=== PATIENT | male | born 1955 | race Hispanic/Latino ===

== ENCOUNTER 2024-06-06 11:02 | Inpatient (IN) | payer MEDICARE ==
[2024-06-06] MEDS ORDERED: Ondansetron ODT 4 MG TAB PO PRN (21:07)
[2024-06-06] MEDS ORDERED: Acetaminophen 650 MG Suppository PR PRN (21:07)
[2024-06-06] MEDS ORDERED: Ondansetron PF 4 MG/2 ML Vial IVP PRN (21:07)
[2024-06-06 21:35] VITALS: BMI 28.5
[2024-06-06 22:32] LABS: #Basophils Less than 0.03 10x3/uL (0.0-0.2); %Basophils 0.2 % (0.0-1.0); %Eosinophils 2.6 % (0.0-10.0); %Lymphocytes 18.6 % (21.0-51.0); %Monocytes 4.9 % (0.0-10.0); %Neutrophils 73.2 % (42.0-75.0); Hemoglobin 12.6 g/dL (14.0-18.0); Mean Corpuscular HGB CONC 32.3 g/dL (32.0-36.0); Mean Corpuscular Hemoglobin 29.2 pg (27.0-31.0); Mean Corpuscular Volume 90.3 fL (78.0-98.0); Mean Platelet Volume 11.6 fL (7.4-10.4); Platelet Count 231 10x3/uL (130-400); RBC Distribution Width 13.8 % (11.5-14.5); Red Blood Cell (RBC) Count 4.32 mill/uL (4.70-6.10)
[2024-06-06 22:44] LABS: Hemoglobin A1c 9.8 % (4.0-6.0)
[2024-06-06 23:19] LABS: Troponin I 0.047 ng/mL (< 0.028)
[2024-06-06 23:27] LABS: Anion Gap 15 mmol/L (10-20); BUN (Urea Nitrogen) 23 mg/dL (8.4-25.7); Calc. Creatinine Clearance 71 mL/min (70-130); Carbon Dioxide 25 mmol/L (23-31); Chloride 100 mmol/L (98-107); Estimated GFR 63; Glucose 255 mg/dL (80-115); Magnesium 1.8 mg/dL (1.6-2.6); Sodium 136 mmol/L (136-145)
[2024-06-07] MEDS: Furosemide 40 MG (4 mL) VIAL SLOW IVP SCH ×2 (00:38→05:08)
[2024-06-07] MEDS: Ipratropium/Albuterol 3 ML NEB NEB PRN (01:35)
[2024-06-07] MEDS ORDERED: Dextrose 50% Abboject 50 ML SYRINGE SLOW IVP PRN (03:36)
[2024-06-07] MEDS ORDERED: Dextrose 5% in Water 1,000 ML IV PRN (03:36)
[2024-06-07] MEDS ORDERED: Glucagon 1 MG/ML KIT IM PRN (03:36)
[2024-06-07] MEDS: Magnesium 2 GM/50 ML(in water) 2 GM in Premix 1 BAG IVPB SCH (04:18)
[2024-06-07 06:12] LABS: ALT (SGPT) 24 U/L (8-55); AST (SGOT) 24 U/L (5-34); Albumin 3.5 g/dL (3.4-4.8); Alkaline Phosphatase 97 U/L (40-110); Anion Gap 15 mmol/L (10-20); BUN (Urea Nitrogen) 20 mg/dL (8.4-25.7); Calc. Creatinine Clearance 79 mL/min (70-130); Calcium 8.7 mg/dL (7.8-10.44); Carbon Dioxide 25 mmol/L (23-31); Chloride 99 mmol/L (98-107); Estimated GFR 72; Globulin 3.2 g/dL (2.4-3.5); Glucose 231 mg/dL (80-115); Protein, Total 6.7 g/dL (5.8-8.1); Sodium 135 mmol/L (136-145)
[2024-06-07] MEDS: Insulin Glargine 30 UNITS/0.3 ML VIAL SC SCH (08:08)
[2024-06-07] MEDS: metFORMIN XR 500 MG ER.TAB PO SCH (08:10)
[2024-06-07] MEDS: Carvedilol 3.125 MG TAB PO SCH (08:10)
[2024-06-07] MEDS: Empagliflozin 10 MG TAB PO SCH (08:10)
[2024-06-07] MEDS: Famotidine 20 MG TAB PO SCH (08:10)
[2024-06-07] MEDS: Potassium Chloride 20 MEQ TAB PO SCH (08:10)
[2024-06-07] MEDS: Famotidine/PF 20 mg/2ml Vial SLOW IVP SCH (08:11)
[2024-06-07] MEDS: Acetaminophen 325 MG TAB PO PRN (12:10)
[2024-06-07] MEDS: Insulin Lispro 100 UNIT/ML 10 ML VIAL SC PRN ×2 (12:11→21:48)
[2024-06-07 18:00] LABS: Magnesium 2.3 mg/dL (1.6-2.6); Potassium 3.6 mmol/L (3.5-5.1)
[2024-06-08 06:40] LABS: #Basophils Less than 0.03 10x3/uL (0.0-0.2); %Basophils 0.3 % (0.0-1.0); %Eosinophils 2.2 % (0.0-10.0); %Lymphocytes 15.4 % (21.0-51.0); %Monocytes 5.2 % (0.0-10.0); %Neutrophils 76.6 % (42.0-75.0); Hematocrit 38.2 % (42.0-52.0); Hemoglobin 12.5 g/dL (14.0-18.0); Mean Corpuscular HGB CONC 32.7 g/dL (32.0-36.0); Mean Corpuscular Hemoglobin 29.2 pg (27.0-31.0); Mean Corpuscular Volume 89.3 fL (78.0-98.0); Mean Platelet Volume 11.5 fL (7.4-10.4); Platelet Count 215 10x3/uL (130-400); RBC Distribution Width 13.8 % (11.5-14.5); Red Blood Cell (RBC) Count 4.28 mill/uL (4.70-6.10)
[2024-06-08 07:55] LABS: Anion Gap 15 mmol/L (10-20); BUN (Urea Nitrogen) 23 mg/dL (8.4-25.7); Calc. Creatinine Clearance 73 mL/min (70-130); Calcium 9.1 mg/dL (7.8-10.44); Carbon Dioxide 25 mmol/L (23-31); Chloride 101 mmol/L (98-107); Estimated GFR 66; Glucose 140 mg/dL (80-115); Potassium 3.7 mmol/L (3.5-5.1); Sodium 137 mmol/L (136-145)
[2024-06-08] MEDS: Sacubitril 24MG/Valsartan 26 MG TAB PO SCH (21:01)
[2024-06-09 04:59] LABS: #Basophils 0.03 10x3/uL (0.0-0.2); %Basophils 0.6 % (0.0-1.0); %Eosinophils 1.6 % (0.0-10.0); %Lymphocytes 18.1 % (21.0-51.0); %Monocytes 7.4 % (0.0-10.0); %Neutrophils 71.7 % (42.0-75.0); Hematocrit 38.5 % (42.0-52.0); Hemoglobin 12.4 g/dL (14.0-18.0); Mean Corpuscular HGB CONC 32.2 g/dL (32.0-36.0); Mean Corpuscular Hemoglobin 28.1 pg (27.0-31.0); Mean Corpuscular Volume 87.1 fL (78.0-98.0); Mean Platelet Volume 11.6 fL (7.4-10.4); Platelet Count 224 10x3/uL (130-400); RBC Distribution Width 13.7 % (11.5-14.5); Red Blood Cell (RBC) Count 4.42 mill/uL (4.70-6.10)
[2024-06-09 05:18] LABS: Anion Gap 13 mmol/L (10-20); BUN (Urea Nitrogen) 26 mg/dL (8.4-25.7); Calc. Creatinine Clearance 66 mL/min (70-130); Calcium 8.6 mg/dL (7.8-10.44); Carbon Dioxide 23 mmol/L (23-31); Chloride 101 mmol/L (98-107); Estimated GFR 64; Glucose 113 mg/dL (80-115); Potassium 3.3 mmol/L (3.5-5.1); Sodium 134 mmol/L (136-145)
[2024-06-09] MEDS: Potassium Chloride 20 MEQ TAB PO SCH (16:37)
[2024-06-10 04:52] LABS: #Basophils Less than 0.03 10x3/uL (0.0-0.2); %Basophils 0.4 % (0.0-1.0); %Eosinophils 3.1 % (0.0-10.0); %Lymphocytes 22.8 % (21.0-51.0); %Monocytes 7.3 % (0.0-10.0); %Neutrophils 66.2 % (42.0-75.0); Hematocrit 39.2 % (42.0-52.0); Hemoglobin 12.5 g/dL (14.0-18.0); Mean Corpuscular HGB CONC 31.9 g/dL (32.0-36.0); Mean Corpuscular Hemoglobin 28.9 pg (27.0-31.0); Mean Corpuscular Volume 90.7 fL (78.0-98.0); Mean Platelet Volume 11.5 fL (7.4-10.4); Platelet Count 251 10x3/uL (130-400); RBC Distribution Width 14.1 % (11.5-14.5); Red Blood Cell (RBC) Count 4.32 mill/uL (4.70-6.10)
[2024-06-10 05:17] LABS: Anion Gap 13 mmol/L (10-20); BUN (Urea Nitrogen) 29 mg/dL (8.4-25.7); Calc. Creatinine Clearance 69 mL/min (70-130); Calcium 9.1 mg/dL (7.8-10.44); Carbon Dioxide 23 mmol/L (23-31); Cardiac Risk 6.3 (Less than 4.5); Chloride 104 mmol/L (98-107); Cholesterol 94 mg/dl (< 200 Desired); Estimated GFR 65; Glucose 120 mg/dL (80-115); HDL Cholesterol 15 mg/dL (>60 Neg Risk); LDL Cholesterol, Calculated 61 mg/dL; Potassium 4.1 mmol/L (3.5-5.1); Sodium 136 mmol/L (136-145); Triglycerides 89 mg/dL (Less than 150)
[2024-06-10] MEDS ORDERED: Furosemide 20 MG TAB PO SCH (09:00)
[2024-06-10] MEDS: Aspirin Chewable 81 MG TAB PO SCH (09:52)
[2024-06-10] MEDS: Furosemide 40 MG TAB PO SCH (11:01)
[2024-06-10] MEDS ORDERED: Communication Order-Pharmacy FS SCH (14:30)
[2024-06-11] MEDS: Sodium Chloride 0.9% 250 ML IV SCH ×2 (00:06→12:25)
[2024-06-11] MEDS ORDERED: Heparin 10,000 UNITS/ 10 ML VIAL ONE (08:04)
[2024-06-11] MEDS ORDERED: fentaNYL 50 mcg/mL 1 mL Vial ONE (08:49)
[2024-06-11] MEDS ORDERED: Midazolam HCl 2 mg/2 ml Vial ONE (08:50)
[2024-06-11 10:56] LABS: #Basophils Less than 0.03 10x3/uL (0.0-0.2); %Basophils 0.4 % (0.0-1.0); %Eosinophils 2.7 % (0.0-10.0); %Lymphocytes 21.9 % (21.0-51.0); %Neutrophils 67.6 % (42.0-75.0); Hematocrit 39.5 % (42.0-52.0); Hemoglobin 12.9 g/dL (14.0-18.0); Mean Corpuscular HGB CONC 32.7 g/dL (32.0-36.0); Mean Corpuscular Hemoglobin 29.1 pg (27.0-31.0); Mean Platelet Volume 11.8 fL (7.4-10.4); Platelet Count 261 10x3/uL (130-400); RBC Distribution Width 14.4 % (11.5-14.5); Red Blood Cell (RBC) Count 4.44 mill/uL (4.70-6.10)
[2024-06-11 11:08] LABS: Anion Gap 11 mmol/L (10-20); BUN (Urea Nitrogen) 22 mg/dL (8.4-25.7); Calc. Creatinine Clearance 88 mL/min (70-130); Calcium 8.3 mg/dL (7.8-10.44); Carbon Dioxide 20 mmol/L (23-31); Chloride 110 mmol/L (98-107); Estimated GFR 89; Glucose 103 mg/dL (80-115); Potassium 3.9 mmol/L (3.5-5.1); Sodium 137 mmol/L (136-145)
[2024-06-11] MEDS ORDERED: Iopamidol 370 76% 100 ML VIAL ONE (14:53)
[2024-06-12 04:23] LABS: #Basophils Less than 0.03 10x3/uL (0.0-0.2); %Basophils 0.3 % (0.0-1.0); %Eosinophils 2.9 % (0.0-10.0); %Lymphocytes 20.3 % (21.0-51.0); %Monocytes 7.9 % (0.0-10.0); %Neutrophils 68.3 % (42.0-75.0); Hematocrit 38.6 % (42.0-52.0); Hemoglobin 12.3 g/dL (14.0-18.0); Mean Corpuscular HGB CONC 31.9 g/dL (32.0-36.0); Mean Corpuscular Hemoglobin 28.9 pg (27.0-31.0); Mean Corpuscular Volume 90.6 fL (78.0-98.0); Mean Platelet Volume 11.6 fL (7.4-10.4); Platelet Count 262 10x3/uL (130-400); RBC Distribution Width 14.6 % (11.5-14.5); Red Blood Cell (RBC) Count 4.26 mill/uL (4.70-6.10)
[2024-06-12 04:51] LABS: ALT (SGPT) 14 U/L (8-55); AST (SGOT) 16 U/L (5-34); Albumin 3.1 g/dL (3.4-4.8); Alkaline Phosphatase 77 U/L (40-110); Anion Gap 11 mmol/L (10-20); BUN (Urea Nitrogen) 19 mg/dL (8.4-25.7); Bilirubin, Total 0.4 mg/dL (0.2-1.2); Calc. Creatinine Clearance 67 mL/min (70-130); Calcium 8.5 mg/dL (7.8-10.44); Carbon Dioxide 24 mmol/L (23-31); Chloride 107 mmol/L (98-107); Estimated GFR 63; Globulin 3.4 g/dL (2.4-3.5); Glucose 86 mg/dL (80-115); Potassium 3.9 mmol/L (3.5-5.1); Protein, Total 6.5 g/dL (5.8-8.1); Sodium 138 mmol/L (136-145)
[2024-06-12] MEDS: Carvedilol 3.125 MG TAB PO SCH (21:38)
[2024-06-13 05:01] LABS: Anion Gap 13 mmol/L (10-20); BUN (Urea Nitrogen) 18 mg/dL (8.4-25.7); Calc. Creatinine Clearance 78 mL/min (70-130); Calcium 9.4 mg/dL (7.8-10.44); Carbon Dioxide 22 mmol/L (23-31); Chloride 106 mmol/L (98-107); Estimated GFR 76; Glucose 97 mg/dL (80-115); Potassium 4.3 mmol/L (3.5-5.1); Sodium 137 mmol/L (136-145)
[2024-06-13] MEDS: Furosemide 40 MG TAB PO SCH (08:46)
[2024-06-13 12:27] VITALS: BP 99/59; TEMP 98.7
== END 2024-06-13 16:13 | disposition home or self-care (01) | DRG 280 ==
LOC: 2SW 21:02 → OBSVTOIN 06-07 14:25
PROVIDERS: ADMIT Student in an Organized Health Care Education/Training Program; ATTEND Internal Medicine
PROC: 4A023N7 Measurement of Cardiac Sampling and Pressure, Left Heart, Percutaneous Approach (ICD-10-PCS; principal; 2024-06-11)
PROC: B2111ZZ Fluoroscopy of Multiple Coronary Arteries using Low Osmolar Contrast (ICD-10-PCS; 2024-06-11)
PROC: B2151ZZ Fluoroscopy of Left Heart using Low Osmolar Contrast (ICD-10-PCS; 2024-06-11)
DX: I11.0 Hypertensive heart disease with heart failure (principal); I50.23 Acute on chronic systolic (congestive) heart failure; I21.A1 Myocardial infarction type 2; I42.0 Dilated cardiomyopathy; E11.9 Type 2 diabetes mellitus without complications; I25.10 Atherosclerotic heart disease of native coronary artery without angina pectoris; Z79.82 Long term (current) use of aspirin; Z79.899 Other long term (current) drug therapy; Z79.84 Long term (current) use of oral hypoglycemic drugs; Z79.4 Long term (current) use of insulin
CPT/HCPCS: 36415; 36416; 71045; 80048; 80053; 80061; 83036; 83735; 83880; 84484; 85025; 85347; 92978; 93005; 93010; 93306; 93454; 93798; 94640; 94760; 96374; 96375; 96376; 99152; 99153; C1753; C1769; C1887; G0378; J1644; J1815; J1940; J2250; J3010; J3475; J7030; J7620; Q9967

== ENCOUNTER 2024-09-30 16:58 | Inpatient (IN) | payer MEDICARE ==
[2024-09-30 18:33] VITALS: BMI 27.8
[2024-09-30] MEDS ORDERED: Ondansetron ODT 4 MG TAB PO PRN (18:33)
[2024-09-30] MEDS ORDERED: Acetaminophen 650 MG Suppository PR PRN (18:33)
[2024-09-30] MEDS ORDERED: Ondansetron PF 4 MG/2 ML Vial IVP PRN (18:33)
[2024-09-30] MEDS ORDERED: Acetaminophen 325 MG TAB PO PRN (18:33)
[2024-09-30] MEDS ORDERED: Dextrose 50% Abboject 50 ML SYRINGE SLOW IVP PRN (19:30)
[2024-09-30] MEDS ORDERED: Ipratropium/Albuterol 3 ML NEB NEB PRN (19:30)
[2024-09-30] MEDS ORDERED: Insulin Lispro 100 UNIT/ML 10 ML VIAL SC PRN ×2 (19:30)
[2024-09-30] MEDS ORDERED: Dextrose 5% in Water 1,000 ML IV PRN (19:30)
[2024-09-30] MEDS ORDERED: Glucagon 1 MG/ML KIT IM PRN (19:30)
[2024-09-30] MEDS: FLU (Fluad Triv) TS24-25 (65UP)/MF59C/PF 45 MCG/0.5 ML Syringe IM ONE (20:30)
[2024-09-30] MEDS: Famotidine 20 MG TAB PO SCH (20:38)
[2024-09-30] MEDS: Furosemide 40 MG (4 mL) VIAL SLOW IVP SCH (20:38)
[2024-09-30 23:11] LABS: Magnesium 1.7 mg/dL (1.6-2.6)
[2024-09-30 23:15] LABS: Troponin I 0.142 ng/mL (< 0.028)
[2024-10-01] MEDS: Ipratropium/Albuterol 3 ML NEB NEB SCH (02:13)
[2024-10-01 05:57] LABS: #Basophils 0.05 10x3/uL (0.0-0.2); %Basophils 0.8 % (0.0-1.0); %Eosinophils 2.6 % (0.0-10.0); %Lymphocytes 16.1 % (21.0-51.0); %Neutrophils 73.2 % (42.0-75.0); Hematocrit 40.2 % (42.0-52.0); Hemoglobin 12.8 g/dL (14.0-18.0); Mean Corpuscular HGB CONC 31.8 g/dL (32.0-36.0); Mean Corpuscular Hemoglobin 28.8 pg (27.0-31.0); Mean Corpuscular Volume 90.3 fL (78.0-98.0); Platelet Count 226 10x3/uL (130-400); RBC Distribution Width 15.4 % (11.5-14.5); Red Blood Cell (RBC) Count 4.45 mill/uL (4.70-6.10)
[2024-10-01 06:14] LABS: Anion Gap 13 mmol/L (10-20); BUN (Urea Nitrogen) 20 mg/dL (8.4-25.7); Calc. Creatinine Clearance 92 mL/min (70-130); Calcium 8.5 mg/dL (7.8-10.44); Carbon Dioxide 23 mmol/L (23-31); Chloride 102 mmol/L (98-107); Estimated GFR 87; Glucose 263 mg/dL (80-115); Magnesium 1.8 mg/dL (1.6-2.6); Potassium 3.7 mmol/L (3.5-5.1); Sodium 134 mmol/L (136-145)
[2024-10-01 06:19] LABS: Troponin I 0.129 ng/mL (< 0.028)
[2024-10-01] MEDS: Furosemide 40 MG (4 mL) VIAL SLOW IVP SCH (06:34)
[2024-10-01] MEDS: Enoxaparin 40 MG (0.4 mL) SYRINGE SC SCH (08:15)
[2024-10-01] MEDS: Aspirin 81 mg Enteric Coated Tablet PO SCH (12:46)
[2024-10-01] MEDS: Spironolactone 25 MG TAB PO SCH (12:46)
[2024-10-01] MEDS: Dapagliflozin Propanediol 10 MG TAB PO SCH (14:50)
[2024-10-01] MEDS: Carvedilol 3.125 MG TAB PO SCH (16:43)
[2024-10-01] MEDS: Atorvastatin Calcium 40 MG TAB PO SCH (20:22)
[2024-10-01] MEDS: Lisinopril 5 MG TAB PO SCH (20:22)
[2024-10-02 04:28] LABS: #Basophils 0.03 10x3/uL (0.0-0.2); %Basophils 0.4 % (0.0-1.0); %Eosinophils 3.1 % (0.0-10.0); %Monocytes 6.3 % (0.0-10.0); %Neutrophils 75.8 % (42.0-75.0); Hematocrit 39.4 % (42.0-52.0); Hemoglobin 12.7 g/dL (14.0-18.0); Mean Corpuscular HGB CONC 32.2 g/dL (32.0-36.0); Mean Platelet Volume 10.8 fL (7.4-10.4); Platelet Count 225 10x3/uL (130-400); RBC Distribution Width 15.2 % (11.5-14.5); Red Blood Cell (RBC) Count 4.38 mill/uL (4.70-6.10)
[2024-10-02 04:46] LABS: Anion Gap 14 mmol/L (10-20); BUN (Urea Nitrogen) 23 mg/dL (8.4-25.7); Calc. Creatinine Clearance 76 mL/min (70-130); Calcium 8.5 mg/dL (7.8-10.44); Carbon Dioxide 25 mmol/L (23-31); Chloride 102 mmol/L (98-107); Estimated GFR 70; Glucose 218 mg/dL (80-115); Potassium 3.3 mmol/L (3.5-5.1); Sodium 138 mmol/L (136-145)
[2024-10-02 07:34] VITALS: TEMP 98.3
[2024-10-02] MEDS: Aspirin 81 mg Enteric Coated Tablet PO SCH (08:55)
[2024-10-02] MEDS: Spironolactone 25 MG TAB PO SCH (08:55)
[2024-10-02 12:14] VITALS: BP 97/55
[2024-10-03] MEDS ORDERED: Furosemide 40 MG TAB PO SCH (07:30)
== END 2024-10-02 15:44 | disposition home or self-care (01) | DRG 280 ==
LOC: OBS 17:50 → OBSVTOIN 19:59
PROVIDERS: ADMIT Hospitalist; ATTEND Internal Medicine
DX: I11.0 Hypertensive heart disease with heart failure (principal); I50.21 Acute systolic (congestive) heart failure; I21.A1 Myocardial infarction type 2; E11.9 Type 2 diabetes mellitus without complications; I25.10 Atherosclerotic heart disease of native coronary artery without angina pectoris; Z91.148 Patient's other noncompliance with medication regimen for other reason; I42.0 Dilated cardiomyopathy; Z79.899 Other long term (current) drug therapy
CPT/HCPCS: 36415; 36416; 80048; 83735; 84443; 84484; 85025; 97139; J1650; J1940